=== PATIENT | female | born 1970 | race Two or more races ===

== ENCOUNTER 2021-05-19 20:54 | Inpatient (IN) | payer OTHER ==
[~2021-05-19] VITALS: Ht 160 cm; Wt 90.7 kg
[2021-05-19] MEDS ORDERED: CIPROFLOXACIN500 MG PO (21:39)
[2021-05-19] MEDS ORDERED: FAMOTIDINE20 MG PO (21:39)
[2021-05-19] MEDS ORDERED: PROTONIX40 M1 PO (21:40)
== END 2021-05-30 18:12 | disposition home or self-care (01) | DRG 394 ==
LOC: ER 20:54 → MEDI 05-20 11:45
PROVIDERS: ADMIT Internal Medicine; ATTEND Internal Medicine
PROC: BW21ZZZ Computerized Tomography (CT Scan) of Abdomen and Pelvis (ICD-10-PCS; principal; 2021-05-20)
PROC: 3E0F7GC Introduction of Other Therapeutic Substance into Respiratory Tract, Via Natural or Artificial Opening (ICD-10-PCS; 2021-05-20)
PROC: BW21YZZ Computerized Tomography (CT Scan) of Abdomen and Pelvis using Other Contrast (ICD-10-PCS; 2021-05-27)
DX: K61.1 Rectal abscess (principal); K62.5 Hemorrhage of anus and rectum; K52.89 Other specified noninfective gastroenteritis and colitis; K59.00 Constipation, unspecified; N93.8 Other specified abnormal uterine and vaginal bleeding; J45.998 Other asthma

== ENCOUNTER 2021-07-02 18:21 | Emergency (ER) | payer OTHER ==
[~2021-07-02] VITALS: Ht 160 cm; Wt 84.4 kg
[~2021-07-02 18:21] MED LIST: CIPROFLOXACIN500 MG PO; FAMOTIDINE20 MG PO; PROTONIX40 M1 PO
[2021-07-02] MEDS ORDERED: FLONASE16 GM (19:18)
[2021-07-02] MEDS ORDERED: DUPIXENT200 MG/1.1 (19:18)
[2021-07-04] MEDS ORDERED: METRONIDAZOLE500 MG PO (23:34)
[2021-07-04] MEDS ORDERED: PEPCID AC20 MG PO (23:34)
[2021-07-04] MEDS ORDERED: INTESTINEX680 M1 PO (23:34)
[2021-07-04] MEDS ORDERED: CIPRO500 MG PO (23:34)
== END 2021-07-03 10:24 | disposition home or self-care (01) ==
LOC: ER 18:21
DX: U07.1 COVID-19 (principal); K52.89 Other specified noninfective gastroenteritis and colitis

== ENCOUNTER 2021-07-04 13:53 | Emergency (ER) | payer OTHER ==
[~2021-07-04] VITALS: Ht 160 cm; Wt 83.5 kg
[~2021-07-04 13:53] MED LIST changes: +DUPIXENT200 MG/1.1; +FLONASE16 GM
[2021-07-04] MEDS ORDERED: INTESTINEX680 M1 PO (23:34)
[2021-07-04] MEDS ORDERED: CIPRO500 MG PO (23:34)
[2021-07-04] MEDS ORDERED: PEPCID AC20 MG PO (23:34)
[2021-07-04] MEDS ORDERED: METRONIDAZOLE500 MG PO (23:34)
== END 2021-07-05 00:33 ==
LOC: ER 13:53
DX: K52.9 Noninfective gastroenteritis and colitis, unspecified (principal); K62.5 Hemorrhage of anus and rectum; Z03.818 Encounter for observation for suspected exposure to other biological agents ruled out

== ENCOUNTER 2021-07-10 07:00 | Day surgery (SDC) | payer OTHER ==
[~2021-07-10 07:00] MED LIST changes: +CIPRO500 MG PO; +INTESTINEX680 M1 PO; +METRONIDAZOLE500 MG PO; +PEPCID AC20 MG PO
== END 2021-07-10 13:40 | disposition home or self-care (01) ==
LOC: AMB-ENDOS 07:00
PROVIDERS: ATTEND Surgery
DX: C19 Malignant neoplasm of rectosigmoid junction (principal); D12.2 Benign neoplasm of ascending colon; D12.3 Benign neoplasm of transverse colon; Z20.822 Contact with and (suspected) exposure to COVID-19; Z12.11 Encounter for screening for malignant neoplasm of colon

== ENCOUNTER → 2021-07-12 | Emergency (ER) | payer OTHER ==
[~2021-07-12] VITALS: Ht 160 cm; Wt 82.6 kg
[~2021-07-12] MED LIST changes: +ALBUTER IH; +AYGESTIN5 MG PO; +BUDESONIDE-FO10.2 G1; +CETIRIZINE HCL10 MG; +CHOLESTYRAMINE L4 GM; +COLCHICINE0.6 MG; +DUPIXENT; +DUPIXENT P300 MG/2 M; +INTESTINEX680 M1; +MONTELUKAST SOD10 MG; +PROAIR HFA8.5 GM; +SYMBIC IH; +ULTRAM50 MG PO; +VALACYCLOVIR500 MG; +VITAMIN C100 MG; +ZINC50 M3
== END | disposition home or self-care (01) ==
LOC: ER 19:34
DX: K29.70 Gastritis, unspecified, without bleeding (principal)

== ENCOUNTER 2021-07-30 08:15 | Inpatient (IN) | payer OTHER ==
[~2021-07-30] VITALS: Ht 160 cm; Wt 83.5 kg
[~2021-07-30 08:15] MED LIST changes: -ALBUTER IH; -AYGESTIN5 MG PO; -BUDESONIDE-FO10.2 G1; -CETIRIZINE HCL10 MG; -CHOLESTYRAMINE L4 GM; -COLCHICINE0.6 MG; -DUPIXENT; -DUPIXENT P300 MG/2 M; -INTESTINEX680 M1; -MONTELUKAST SOD10 MG; -PROAIR HFA8.5 GM; -SYMBIC IH; -ULTRAM50 MG PO; -VALACYCLOVIR500 MG; -VITAMIN C100 MG; -ZINC50 M3
[2021-07-30] MEDS ORDERED: PEPCID AC20 MG PO (09:44)
[2021-07-30] MEDS ORDERED: ALBUTER IH (09:45)
[2021-07-30] MEDS ORDERED: SYMBIC IH (09:45)
[2021-07-30] MEDS ORDERED: DUPIXENT (09:46)
[2021-07-30] MEDS ORDERED: AYGESTIN5 MG PO (09:47)
[2021-08-02] MEDS ORDERED: DUPIXENT P300 MG/2 M (10:04)
[2021-08-02] MEDS ORDERED: PROAIR HFA8.5 GM (10:04)
[2021-08-02] MEDS ORDERED: BUDESONIDE-FO10.2 G1 (10:04)
[2021-08-02] MEDS ORDERED: VITAMIN C100 MG (10:05)
[2021-08-02] MEDS ORDERED: CETIRIZINE HCL10 MG (10:05)
[2021-08-02] MEDS ORDERED: ZINC50 M3 (10:05)
[2021-08-02] MEDS ORDERED: CHOLESTYRAMINE L4 GM (10:05)
[2021-08-02] MEDS ORDERED: COLCHICINE0.6 MG (10:05)
[2021-08-02] MEDS ORDERED: VALACYCLOVIR500 MG (10:05)
[2021-08-02] MEDS ORDERED: INTESTINEX680 M1 (10:05)
[2021-08-02] MEDS ORDERED: FLONASE16 GM (10:06)
[2021-08-02] MEDS ORDERED: MONTELUKAST SOD10 MG (10:06)
[2021-08-08] MEDS ORDERED: ULTRAM50 MG PO (11:04)
== END 2021-08-08 12:02 | disposition home or self-care (01) | DRG 331 ==
LOC: EDSTATUS 08:15 → ADM 08:15 → O/R 08-02 06:10 → SURH 08-02 08:15 → SURG 08-02 19:24
PROVIDERS: ADMIT Surgery; ATTEND Surgery
PROC: 0DTP4ZZ Resection of Rectum, Percutaneous Endoscopic Approach (ICD-10-PCS; 2021-08-02)
PROC: 07BC3ZX Excision of Pelvis Lymphatic, Percutaneous Approach, Diagnostic (ICD-10-PCS; 2021-08-02)
PROC: 3E0F7SF Introduction of Other Gas into Respiratory Tract, Via Natural or Artificial Opening (ICD-10-PCS; 2021-08-02)
PROC: 0DTN4ZZ Resection of Sigmoid Colon, Percutaneous Endoscopic Approach (ICD-10-PCS; principal; 2021-08-02 11:15)
PROC: 3E0F7GC Introduction of Other Therapeutic Substance into Respiratory Tract, Via Natural or Artificial Opening (ICD-10-PCS; 2021-08-04)
PROC: 30233N1 Transfusion of Nonautologous Red Blood Cells into Peripheral Vein, Percutaneous Approach (ICD-10-PCS; 2021-08-05)
DX: C19 Malignant neoplasm of rectosigmoid junction (principal); D64.9 Anemia, unspecified; T40.2X5A Adverse effect of other opioids, initial encounter; Y92.230 Patient room in hospital as the place of occurrence of the external cause; J45.998 Other asthma

== ENCOUNTER 2021-08-30 06:21 | Day surgery (SDC) | payer OTHER ==
[~2021-08-30 06:21] MED LIST changes: +ALBUTER IH; +AYGESTIN5 MG PO; +BUDESONIDE-FO10.2 G1; +CETIRIZINE HCL10 MG; +CHOLESTYRAMINE L4 GM; +COLCHICINE0.6 MG; +DUPIXENT; +DUPIXENT P300 MG/2 M; +INTESTINEX680 M1; +MONTELUKAST SOD10 MG; +PROAIR HFA8.5 GM; +SYMBIC IH; +ULTRAM50 MG PO; +VALACYCLOVIR500 MG; +VITAMIN C100 MG; +ZINC50 M3
[2021-08-30] MEDS ORDERED: ULTRAM50 MG PO (10:40)
== END 2021-08-30 11:00 | disposition home or self-care (01) ==
LOC: CIR.AMB 06:21
PROVIDERS: ATTEND Surgery
DX: C19 Malignant neoplasm of rectosigmoid junction (principal); Z20.822 Contact with and (suspected) exposure to COVID-19
CPT/HCPCS: 36561; C1751

== ENCOUNTER 2021-09-11 22:32 | Emergency (ER) | payer OTHER ==
[~2021-09-11] VITALS: Ht 157.5 cm; Wt 76.2 kg
== END 2021-09-12 13:49 | disposition home or self-care (01) ==
LOC: ER 22:32
DX: R10.31 Right lower quadrant pain (principal); N83.291 Other ovarian cyst, right side

== ENCOUNTER 2022-03-08 11:46 | Emergency (ER) | payer OTHER ==
[~2022-03-08] VITALS: Ht 160 cm; Wt 89.4 kg
[2022-03-08] MEDS ORDERED: XARELTO15 MG (12:19)
== END 2022-03-08 14:10 | disposition home or self-care (01) ==
LOC: ER 11:46
DX: T82.868A Thrombosis due to vascular prosthetic devices, implants and grafts, initial encounter (principal); C50.919 Malignant neoplasm of unspecified site of unspecified female breast

== ENCOUNTER 2022-04-18 09:14 | Emergency (ER) | payer OTHER ==
[~2022-04-18] VITALS: Ht 152.4 cm; Wt 90.7 kg
[~2022-04-18 09:14] MED LIST changes: +XARELTO15 MG
[2022-04-18] MEDS ORDERED: IRON325 MG PO (20:56)
== END 2022-04-18 20:59 | disposition home or self-care (01) ==
LOC: ER 09:14
DX: N93.9 Abnormal uterine and vaginal bleeding, unspecified (principal); D25.9 Leiomyoma of uterus, unspecified; Z88.6 Allergy status to analgesic agent; Z91.041 Radiographic dye allergy status

== ENCOUNTER 2022-05-01 07:48 | Day surgery (SDC) | payer OTHER ==
[~2022-05-01] VITALS: Ht 165.1 cm; Wt 86.2 kg
[~2022-05-01 07:48] MED LIST changes: +COZAAR50 MG PO; +IRON325 MG PO
[2022-05-01] MEDS ORDERED: TRAMADOL HCL50 MG PO (14:02)
== END 2022-05-01 14:40 | disposition home or self-care (01) ==
LOC: CIR.AMB 07:48
PROVIDERS: ATTEND Surgery
DX: T82.598A Other mechanical complication of other cardiac and vascular devices and implants, initial encounter (principal); C19 Malignant neoplasm of rectosigmoid junction; K59.09 Other constipation; R59.0 Localized enlarged lymph nodes; I82.629 Acute embolism and thrombosis of deep veins of unspecified upper extremity; Z88.6 Allergy status to analgesic agent; Z20.822 Contact with and (suspected) exposure to COVID-19; Z91.041 Radiographic dye allergy status; J45.909 Unspecified asthma, uncomplicated; Z86.16 Personal history of COVID-19; I10 Essential (primary) hypertension; Z92.21 Personal history of antineoplastic chemotherapy; E66.9 Obesity, unspecified

== ENCOUNTER 2022-07-25 08:36 | Outpatient (CLI) | payer OTHER ==
[~2022-07-25 08:36] MED LIST changes: +TRAMADOL HCL50 MG PO
== END 2022-07-25 08:39 | disposition home or self-care (01) ==
LOC: NUCLEAR 08:36
PROVIDERS: ATTEND Internal Medicine
DX: I82.C12 Acute embolism and thrombosis of left internal jugular vein (principal); Z91.041 Radiographic dye allergy status; Z88.6 Allergy status to analgesic agent

== ENCOUNTER 2022-07-31 07:18 | Outpatient (CLI) | payer OTHER | END 2022-07-31 07:46 | disposition home or self-care (01) | LOC: TOM 07:18 | PROVIDERS: ATTEND Internal Medicine | DX: I26.99 Other pulmonary embolism without acute cor pulmonale (principal); C19 Malignant neoplasm of rectosigmoid junction | CPT/HCPCS: 71275 ==

== ENCOUNTER 2022-08-23 07:18 | Outpatient (CLI) | payer OTHER | END 2022-08-23 07:19 | disposition home or self-care (01) | LOC: LAB 07:18 | PROVIDERS: ATTEND Obstetrics & Gynecology Gynecologic Oncology | DX: D64.9 Anemia, unspecified (principal); N39.0 Urinary tract infection, site not specified; R79.1 Abnormal coagulation profile; Z01.818 Encounter for other preprocedural examination; Z20.822 Contact with and (suspected) exposure to COVID-19; I10 Essential (primary) hypertension; N83.291 Other ovarian cyst, right side ==

== ENCOUNTER 2022-08-25 12:15 | Inpatient (IN) | payer OTHER ==
[~2022-08-25] VITALS: Ht 160 cm; Wt 90.7 kg
[2022-08-29] MEDS ORDERED: GABAPENTIN300 M2 (09:34)
[2022-08-29] MEDS ORDERED: AZELASTINE137 MCG/0. (09:34)
[2022-08-29] MEDS ORDERED: BUDESONIDE-FO10.2 G1 (09:34)
[2022-08-29] MEDS ORDERED: FERROUS SULFAT325 MG (09:34)
[2022-08-29] MEDS ORDERED: LOSARTAN-HCTZ1 EACH (09:34)
[2022-08-29] MEDS ORDERED: MONTELUKAST SOD10 MG (09:34)
== END 2022-08-29 17:44 | disposition home or self-care (01) | DRG 743 ==
LOC: O/R 08-28 06:35 → SURG 08-28 10:15 → OB/GYN 08-28 15:30
PROVIDERS: ADMIT Obstetrics & Gynecology Gynecologic Oncology; ATTEND Obstetrics & Gynecology Gynecologic Oncology
PROC: 0DBW4ZZ Excision of Peritoneum, Percutaneous Endoscopic Approach (ICD-10-PCS; 2022-08-28)
PROC: 0UT74ZZ Resection of Bilateral Fallopian Tubes, Percutaneous Endoscopic Approach (ICD-10-PCS; 2022-08-28)
PROC: 07BC4ZZ Excision of Pelvis Lymphatic, Percutaneous Endoscopic Approach (ICD-10-PCS; 2022-08-28)
PROC: 0UT24ZZ Resection of Bilateral Ovaries, Percutaneous Endoscopic Approach (ICD-10-PCS; 2022-08-28)
PROC: 0UT94ZZ Resection of Uterus, Percutaneous Endoscopic Approach (ICD-10-PCS; principal; 2022-08-28 10:15)
DX: D25.1 Intramural leiomyoma of uterus (principal); N83.01 Follicular cyst of right ovary; N80.03 Adenomyosis of the uterus; N83.12 Corpus luteum cyst of left ovary; Z20.822 Contact with and (suspected) exposure to COVID-19

== ENCOUNTER 2022-09-10 14:09 | Outpatient (CLI) | payer OTHER ==
[~2022-09-10 14:09] MED LIST changes: +AZELASTINE137 MCG/0.; +FERROUS SULFAT325 MG; +GABAPENTIN300 M2; +LOSARTAN-HCTZ1 EACH
== END 2022-09-10 14:18 | disposition home or self-care (01) ==
LOC: LAB 14:09
PROVIDERS: ATTEND Obstetrics & Gynecology Gynecologic Oncology
DX: N39.0 Urinary tract infection, site not specified (principal)

== ENCOUNTER 2023-01-24 08:13 | Outpatient (CLI) | payer OTHER | END 2023-01-24 08:15 | disposition home or self-care (01) | LOC: LAB 08:13 | PROVIDERS: ATTEND Surgery | DX: D64.9 Anemia, unspecified (principal); E11.8 Type 2 diabetes mellitus with unspecified complications; I48.91 Unspecified atrial fibrillation; N39.0 Urinary tract infection, site not specified; E03.9 Hypothyroidism, unspecified; M35.1 Other overlap syndromes; E11.9 Type 2 diabetes mellitus without complications; D55.9 Anemia due to enzyme disorder, unspecified; Z12.11 Encounter for screening for malignant neoplasm of colon; E78.5 Hyperlipidemia, unspecified; C19 Malignant neoplasm of rectosigmoid junction; R59.0 Localized enlarged lymph nodes; K62.5 Hemorrhage of anus and rectum; R10.32 Left lower quadrant pain; K59.09 Other constipation; T82.59 Other mechanical complication of other cardiac and vascular devices and implants; I82.629 Acute embolism and thrombosis of deep veins of unspecified upper extremity ==

== ENCOUNTER → 2023-01-26 08:17 | Outpatient (CLI) | payer OTHER | END | disposition home or self-care (01) | LOC: LAB 08:17 | PROVIDERS: ATTEND Surgery | DX: Z20.822 Contact with and (suspected) exposure to COVID-19 (principal); Z03.818 Encounter for observation for suspected exposure to other biological agents ruled out ==

== ENCOUNTER → 2023-01-29 | Outpatient (CLI) | payer OTHER | END | disposition home or self-care (01) | LOC: TOM 08:27 | PROVIDERS: ATTEND Internal Medicine | DX: J33.0 Polyp of nasal cavity (principal); R59.0 Localized enlarged lymph nodes; C18.9 Malignant neoplasm of colon, unspecified ==

== ENCOUNTER → 2023-02-12 07:57 | Outpatient (CLI) | payer OTHER | END | disposition home or self-care (01) | LOC: LAB 07:57 | PROVIDERS: ATTEND Internal Medicine | DX: E03.9 Hypothyroidism, unspecified (principal) ==

== ENCOUNTER 2023-02-12 08:37 | Outpatient (CLI) | payer OTHER | END 2023-02-12 09:04 | disposition home or self-care (01) | LOC: SONOGRAMA 08:37 | PROVIDERS: ATTEND Internal Medicine | DX: E04.2 Nontoxic multinodular goiter (principal) ==

== ENCOUNTER 2023-05-23 09:00 | Outpatient (CLI) | payer OTHER | END 2023-05-23 09:02 | disposition home or self-care (01) | LOC: LAB 09:00 | PROVIDERS: ATTEND Internal Medicine | DX: D64.9 Anemia, unspecified (principal); E11.8 Type 2 diabetes mellitus with unspecified complications; I48.91 Unspecified atrial fibrillation; N39.0 Urinary tract infection, site not specified; E03.9 Hypothyroidism, unspecified; M35.1 Other overlap syndromes; E11.9 Type 2 diabetes mellitus without complications; E55.9 Vitamin D deficiency, unspecified; Z12.11 Encounter for screening for malignant neoplasm of colon; E78.2 Mixed hyperlipidemia ==

== ENCOUNTER 2023-06-18 07:48 | Outpatient (CLI) | payer OTHER | END 2023-06-18 07:49 | disposition home or self-care (01) | LOC: NUCLEAR 07:48 | PROVIDERS: ATTEND Internal Medicine | DX: I82.C21 Chronic embolism and thrombosis of right internal jugular vein (principal); C18.4 Malignant neoplasm of transverse colon ==

== ENCOUNTER 2023-06-19 13:36 | Outpatient (CLI) | payer OTHER | END 2023-06-19 13:40 | disposition home or self-care (01) | LOC: NUCLEAR 13:36 | PROVIDERS: ATTEND Internal Medicine | DX: I82.C21 Chronic embolism and thrombosis of right internal jugular vein (principal); C18.4 Malignant neoplasm of transverse colon ==

== ENCOUNTER 2023-06-27 09:51 | Outpatient (CLI) | payer OTHER | END 2023-06-27 09:55 | disposition home or self-care (01) | LOC: LAB 09:51 | PROVIDERS: ATTEND Internal Medicine | DX: C19 Malignant neoplasm of rectosigmoid junction (principal); Z51.11 Encounter for antineoplastic chemotherapy; R11.0 Nausea; Z20.828 Contact with and (suspected) exposure to other viral communicable diseases; I82.C12 Acute embolism and thrombosis of left internal jugular vein ==

== ENCOUNTER 2023-08-20 07:14 | Outpatient (CLI) | payer OTHER | END 2023-08-20 12:47 | disposition home or self-care (01) | LOC: SONOGRAMA 07:14 | PROVIDERS: ATTEND Internal Medicine | DX: R10.9 Unspecified abdominal pain (principal) ==

== ENCOUNTER 2023-09-16 07:25 | Outpatient (CLI) | payer OTHER | END 2023-09-16 07:27 | disposition home or self-care (01) | LOC: NUCLEAR 07:25 | PROVIDERS: ATTEND Internal Medicine | DX: K81.1 Chronic cholecystitis (principal) ==

== ENCOUNTER 2023-12-05 10:43 | Outpatient (CLI) | payer OTHER ==
[2023-12-05 13:01] LABS: HEMATOCRIT 37.9 % (36.0-45.00); HEMOGLOBIN 12.7 g/dL (12.0-15.00); MEAN CELL VOLUME 85.9 fL (80.00-100.00); MEAN CORPUSCULAR HEMOGLOBIN 28.8 pg (27.00-32.0); MEAN CORPUSCULAR HGB CONC 33.5 g/dl (32.0-36.0); PLATELET COUNT 340 K/uL (150-450); RED BLOOD COUNT 4.42 M/uL (4.00-6.00); RED CELL DISTRIBUTION WIDTH 12.7 % (11.5-14.5)
[2023-12-05 13:17] LABS: ALBUMIN 4.2 gm/dL (3.4-5.0); BILIRUBIN TOTAL 0.27 mg/dL (0.3-1.2); CALCIUM 9.6 mg/dL (8.5-10.1); CREATININE SERUM 0.64 mg/dL (0.55-1.02); GFR 97.83; GLOBULINA 3.6 G/DL (2.4-3.5); POTASSIUM 3.81 mEq/L (3.5-5.1); TOTAL PROTEIN 7.8 gm/dL (6.4-8.2)
== END 2023-12-05 23:00 | disposition home or self-care (01) ==
LOC: LAB 10:43
PROVIDERS: ATTEND Internal Medicine
DX: C19 Malignant neoplasm of rectosigmoid junction (principal); C78.6 Secondary malignant neoplasm of retroperitoneum and peritoneum

== ENCOUNTER 2023-12-09 06:55 | Outpatient (CLI) | payer OTHER | END 2023-12-09 08:09 | disposition home or self-care (01) | LOC: TOM 06:55 | PROVIDERS: ATTEND Internal Medicine | DX: C19 Malignant neoplasm of rectosigmoid junction (principal); N60.11 Diffuse cystic mastopathy of right breast; N60.12 Diffuse cystic mastopathy of left breast ==

== ENCOUNTER 2024-11-22 06:24 | Outpatient (CLI) | payer OTHER ==
[2024-11-22 07:31] LABS: URINE APPEARANCE Clear; URINE BILIRRUBIN Negative (NEGATIVE); URINE COLOR Yellow; URINE GLUCOSE Negative (NEGATIVE); URINE KETONE Negative (NEGATIVE); URINE LEUKOCYTE Negative; URINE NITRATE Negative; URINE PROTEIN Negative (NEGATIVE); URINE UROBILINOGEN 0.2 E.U./dl
[2024-11-22 07:32] LABS: HEMATOCRIT 37.8 % (36.0-45.00); HEMOGLOBIN 12.9 g/dL (12.0-15.00); MEAN CELL VOLUME 86.6 fL (80.00-100.00); MEAN CORPUSCULAR HEMOGLOBIN 29.5 pg (27.00-32.0); MEAN CORPUSCULAR HGB CONC 34.1 g/dl (32.0-36.0); PLATELET COUNT 295 K/uL (150-450); RED BLOOD COUNT 4.36 M/uL (4.00-6.00); RED CELL DISTRIBUTION WIDTH 13.8 % (11.5-14.5)
[2024-11-22 07:34] LABS: URINE BACTERIA 309.6 uL (0.0-1933); URINE EPITHELIAL CELLS 9.4 uL (0.0-38.8); URINE RBC 62.3 uL (0.0-20.8); URINE WBC 3.4 uL (0.0-23.2)
[2024-11-22 07:39] LABS: URINE BLOOD Trace
[2024-11-22 09:32] LABS: ALBUMIN 3.9 gm/dL (3.4-5.0); BILIRUBIN TOTAL 0.3 mg/dL (0.3-1.2); CALCIUM 9.3 mg/dL (8.5-10.1); CHOL HDL RATIO 3.3 (0-5.0); CREATININE SERUM 0.63 mg/dL (0.55-1.02); GFR 99.23; GLOBULINA 3.6 G/DL (2.4-3.5); POTASSIUM 3.94 mEq/L (3.5-5.1); T4 TOTAL 11.37 UG/DL (4.8-13.9); TOTAL PROTEIN 7.5 gm/dL (6.4-8.2)
[2024-11-22 09:36] LABS: TSH 0.02 uIU/mL (0.358-3.74)
== END 2024-11-22 06:25 | disposition home or self-care (01) ==
LOC: LAB 06:24
PROVIDERS: ATTEND Internal Medicine
DX: C19 Malignant neoplasm of rectosigmoid junction (principal); D64.9 Anemia, unspecified; R10.9 Unspecified abdominal pain; E11.9 Type 2 diabetes mellitus without complications

== ENCOUNTER 2024-12-14 06:23 | Outpatient (CLI) | payer OTHER ==
[2024-12-15 06:04] LABS: CA 125 5.8 U/mL (0.0-38.1); ESTRADIOL SERUM < 5.0 pg/mL (.); FOLLICLE STIMULATING HORMONE 89.1 mIU/mL (.); TESTOSTERONE,TOTAL < 3.00 ng/dL (4-50)
== END 2024-12-14 06:27 | disposition home or self-care (01) ==
LOC: LAB 06:23
DX: E03.9 Hypothyroidism, unspecified (principal); E16.2 Hypoglycemia, unspecified; E78.5 Hyperlipidemia, unspecified; E55.9 Vitamin D deficiency, unspecified; Z12.11 Encounter for screening for malignant neoplasm of colon; N91.1 Secondary amenorrhea; E22.1 Hyperprolactinemia; D64.9 Anemia, unspecified

== ENCOUNTER 2024-12-14 07:04 | Outpatient (CLI) | payer OTHER | END 2024-12-14 10:31 | disposition home or self-care (01) | LOC: MAMO-SONO 07:04 | DX: N60.01 Solitary cyst of right breast (principal); N60.02 Solitary cyst of left breast ==

== ENCOUNTER 2024-12-20 13:12 | Emergency (ER) | payer OTHER ==
[~2024-12-20] VITALS: Ht 160 cm; Wt 82.6 kg
[2024-12-20] MEDS ORDERED: FAMOtidine 10 MG/ML (4ML VIAL) IV ONE (16:15)
[2024-12-20] MEDS ORDERED: MORPHINE SULFATE 4 MG/ML VIAL IV ONE (16:15)
[2024-12-20] MEDS ORDERED: DIPHENHYDRAMINE HCL 50 MG/ML VIAL 1ML IV ONE (16:30)
[2024-12-20] MEDS ORDERED: METHYLPREDNISOLONE SOD SUCC 40 MG VIAL IV ONE (16:30)
[2024-12-20] MEDS ORDERED: FAMOTIDINE/PF 20 MG/2 ML VIAL ONE (16:33)
[2024-12-20] MEDS ORDERED: METHYLPREDNISOLONE SOD SUCC 40 MG VIAL ONE (16:33)
[2024-12-20] MEDS ORDERED: DIPHENHYDRAMINE HCL 50 MG/ML VIAL 1ML ONE (16:33)
[2024-12-20 16:55] LABS: HEMATOCRIT 40.3 % (36.0-45.00); HEMOGLOBIN 13.3 g/dL (12.0-15.00); MEAN CELL VOLUME 87.6 fL (80.00-100.00); MEAN CORPUSCULAR HGB CONC 33.1 g/dl (32.0-36.0); PLATELET COUNT 284 K/uL (150-450); RED CELL DISTRIBUTION WIDTH 13.3 % (11.5-14.5)
[2024-12-20 17:27] LABS: URINE APPEARANCE Clear; URINE BILIRRUBIN Negative (NEGATIVE); URINE COLOR Yellow; URINE GLUCOSE Negative (NEGATIVE); URINE KETONE Negative (NEGATIVE); URINE LEUKOCYTE Negative; URINE NITRATE Negative; URINE PROTEIN Negative (NEGATIVE); URINE UROBILINOGEN 0.2 E.U./dl
[2024-12-20 17:31] LABS: URINE BACTERIA 116.1 uL (0.0-1933); URINE EPITHELIAL CELLS 2.8 uL (0.0-38.8); URINE RBC 11.9 uL (0.0-20.8); URINE WBC 2.2 uL (0.0-23.2)
[2024-12-20 17:47] LABS: URINE BLOOD TRACE
[2024-12-20] MEDS ORDERED: MEPERIDINE HCL/PF 50 MG/ML VIAL IM STA (18:27)
[2024-12-20 18:49] LABS: BILIRUBIN TOTAL 0.22 mg/dL (0.3-1.2); CALCIUM 9.3 mg/dL (8.5-10.1); CREATININE SERUM 0.66 mg/dL (0.55-1.02); GFR 94.04; GLOBULINA 3.9 G/DL (2.4-3.5); INR 0.99; PARTIAL THROMBOPLASTIN TIME 27.1 SECONDS (22.0-34.0); POTASSIUM 4.11 mEq/L (3.5-5.1); PROTHROMBIN TIME 10.8 SECONDS (9.0-11.5); TOTAL PROTEIN 7.9 gm/dL (6.4-8.2)
[2024-12-20] MEDS ORDERED: PEPCID AC20 MG PO (21:46)
[2024-12-20] MEDS ORDERED: DICY20TA PO (21:46)
== END 2024-12-20 22:16 | disposition home or self-care (01) ==
LOC: ER 13:15
PROVIDERS: General Practice
DX: R10.32 Left lower quadrant pain (principal); K29.70 Gastritis, unspecified, without bleeding; K63.89 Other specified diseases of intestine; E03.9 Hypothyroidism, unspecified; I10 Essential (primary) hypertension; Z88.6 Allergy status to analgesic agent; Z88.8 Allergy status to other drugs, medicaments and biological substances; Z87.09 Personal history of other diseases of the respiratory system; Z85.038 Personal history of other malignant neoplasm of large intestine

== ENCOUNTER 2025-01-10 10:33 | Outpatient (CLI) | payer OTHER ==
[~2025-01-10 10:33] MED LIST changes: +DICY20TA PO
== END 2025-01-10 10:34 | disposition home or self-care (01) ==
LOC: NUCLEAR 10:33
DX: I10 Essential (primary) hypertension (principal); M81.0 Age-related osteoporosis without current pathological fracture

== ENCOUNTER → 2025-03-10 10:10 | Outpatient (CLI) | payer OTHER ==
[2025-03-10 11:54] LABS: URINE APPEARANCE Clear; URINE BILIRRUBIN Negative (NEGATIVE); URINE BLOOD Negative; URINE COLOR Yellow; URINE GLUCOSE Negative (NEGATIVE); URINE KETONE Negative (NEGATIVE); URINE LEUKOCYTE Negative; URINE NITRATE Negative; URINE PROTEIN Negative (NEGATIVE); URINE UROBILINOGEN 0.2 E.U./dl
[2025-03-10 11:57] LABS: HEMATOCRIT 39.1 % (36.0-45.00); HEMOGLOBIN 13.4 g/dL (12.0-15.00); MEAN CELL VOLUME 86.5 fL (80.00-100.00); MEAN CORPUSCULAR HEMOGLOBIN 29.7 pg (27.00-32.0); MEAN CORPUSCULAR HGB CONC 34.3 g/dl (32.0-36.0); PLATELET COUNT 271 K/uL (150-450); RED BLOOD COUNT 4.52 M/uL (4.00-6.00); RED CELL DISTRIBUTION WIDTH 13.2 % (11.5-14.5)
[2025-03-10 11:58] LABS: URINE BACTERIA 51.3 uL (0.0-1933); URINE RBC 4.1 uL (0.0-20.8)
[2025-03-10 12:07] LABS: URINE EPITHELIAL CELLS 0.7 uL (0.0-38.8); URINE WBC 0.7 uL (0.0-23.2)
[2025-03-10 13:32] LABS: ALBUMIN 4.3 gm/dL (3.4-5.0); BILIRUBIN TOTAL 0.44 mg/dL (0.3-1.2); CALCIUM 9.5 mg/dL (8.5-10.1); CHOL HDL RATIO 3.9 (0-5.0); CREATININE SERUM 0.64 mg/dL (0.55-1.02); FREE TRIODOTIRONINE 2.78 pg/ml (2.18-3.98); GFR 97.07; GLOBULINA 3.5 G/DL (2.4-3.5); POTASSIUM 4.36 mEq/L (3.5-5.1); T4 FREE 1.34 NG/ML (0.76-1.46); TOTAL PROTEIN 7.8 gm/dL (6.4-8.2)
[2025-03-10 13:33] LABS: TSH 0.022 uIU/mL (0.358-3.74)
== END | disposition home or self-care (01) ==
LOC: LAB 10:10
DX: E03.9 Hypothyroidism, unspecified (principal); E66.9 Obesity, unspecified; E11.8 Type 2 diabetes mellitus with unspecified complications; I10 Essential (primary) hypertension; N95.9 Unspecified menopausal and perimenopausal disorder; R97.20 Elevated prostate specific antigen [PSA]

== ENCOUNTER 2025-05-26 13:04 | Outpatient (CLI) | payer OTHER | END 2025-05-26 13:11 | disposition home or self-care (01) | LOC: RAD 13:04 | PROVIDERS: ATTEND Internal Medicine | DX: J01.90 Acute sinusitis, unspecified (principal) ==

== ENCOUNTER 2025-05-30 15:11 | Emergency (ER) | payer OTHER ==
[~2025-05-30] VITALS: Ht 160 cm; Wt 87.1 kg
[2025-05-30] MEDS ORDERED: XANAX0.25 MG PO (16:09)
[2025-05-30 20:47] LABS: BASO % 1.0 % (0.1-1.2); EOS # 0.65 (0.04-0.54); EOS % 8.1 % (0.7-7.0); LYMPH # 3.27 (1.18-3.74); LYMPH % 40.8 % (19.3-53.1); MEAN PLATELET VOLUME 9.60 fl (9.4-12.4); MONO # 0.42 (0.24-0.82); MONO % 5.2 % (4.7-12.5); NEUT # 3.56 (1.56-6.13); NEUT % 44.5 % (34.0-71.1); RED CELL DISTRIBUTION WIDTH 12.3 % (11.6-14.4)
== END 2025-05-30 21:45 | disposition home or self-care (01) ==
LOC: ER 15:11
DX: R10.32 Left lower quadrant pain (principal); Z88.6 Allergy status to analgesic agent; Z91.041 Radiographic dye allergy status; K59.01 Slow transit constipation

== ENCOUNTER 2025-07-08 09:28 | Outpatient (CLI) | payer OTHER ==
[~2025-07-08 09:28] MED LIST changes: +XANAX0.25 MG PO
[2025-07-08 10:43] LABS: ALT/SGPT 20.0 U/L (12-78); AST/SGOT 14.0 U/L (15-37); BILIRUBIN TOTAL 0.38 mg/dL (0.3-1.2); BUN CREA RATIO 23.0 (7.0-25.0); CREATININE SERUM 0.69 mg/dL (0.55-1.02); GFR 89.0; GLOBULINA 4.0 G/DL (2.4-3.5); GLUCOSE FASTING 89.0 mg/dL (65-100); OSMOLALITY SERUM 280.0 MOSM/KG (275-295)
[2025-07-08 11:00] LABS: BASO % 1.2 % (0.1-1.2); EOS # 1.04 (0.04-0.54); LYMPH # 2.05 (1.18-3.74); LYMPH % 30.1 % (19.3-53.1); MEAN PLATELET VOLUME 9.90 fl (9.4-12.4); MONO # 0.33 (0.24-0.82); MONO % 4.8 % (4.7-12.5); NEUT # 3.30 (1.56-6.13); NEUT % 48.4 % (34.0-71.1); RED CELL DISTRIBUTION WIDTH 11.9 % (11.6-14.4)
[2025-07-08 11:03] LABS: EOS % 15.2 % (0.7-7.0)
== END 2025-07-08 09:32 | disposition home or self-care (01) ==
LOC: LAB 09:28
PROVIDERS: ATTEND Internal Medicine
DX: C19 Malignant neoplasm of rectosigmoid junction (principal)

== ENCOUNTER 2025-09-30 09:35 | Outpatient (CLI) | payer OTHER ==
[2025-09-30 11:43] LABS: BASO % 1.1 % (0.1-1.2); EOS # 0.75 (0.04-0.54); EOS % 13.3 % (0.7-7.0); LYMPH # 1.92 (1.18-3.74); LYMPH % 33.9 % (19.3-53.1); MEAN PLATELET VOLUME 10.00 fl (9.4-12.4); MONO # 0.30 (0.24-0.82); MONO % 5.3 % (4.7-12.5); NEUT # 2.62 (1.56-6.13); NEUT % 46.2 % (34.0-71.1); RED CELL DISTRIBUTION WIDTH 12.1 % (11.6-14.4)
[2025-09-30 11:59] LABS: ERYTHROCYTE SEDIMENTATION RATE 16 mm/hr (0-30)
[2025-09-30 12:07] LABS: INR 0.97; URINE APPEARANCE Clear; URINE BILIRRUBIN Negative (NEGATIVE); URINE BLOOD Negative; URINE COLOR Yellow; URINE GLUCOSE Negative (NEGATIVE); URINE KETONE Negative (NEGATIVE); URINE LEUKOCYTE Negative; URINE NITRATE Negative; URINE PROTEIN Negative (NEGATIVE); URINE UROBILINOGEN 0.2 E.U./dl
[2025-09-30 12:11] LABS: URINE BACTERIA 20.4 uL (0.0-1933); URINE EPITHELIAL CELLS 2.1 uL (0.0-38.8); URINE RBC 4.8 uL (0.0-20.8)
[2025-09-30 12:26] LABS: URINE CAST 0.00 uL (0.0-1.40); URINE WBC 0.1 uL (0.0-23.2)
[2025-09-30 14:59] LABS: BUN CREA RATIO 29.0 (7.0-25.0); CHOL HDL RATIO 3.5 (0-5.0); CREATININE SERUM 0.59 mg/dL (0.55-1.02); GFR 106.62; GLUCOSE FASTING 90.0 mg/dL (65-100); HDL 61.0 mg/dl (40-60); LDL 121.0 mg/dl (0-130); OSMOLALITY SERUM 279.0 MOSM/KG (275-295); VLDL 29.0 (0-39)
[2025-09-30 15:00] LABS: ALT/SGPT 22.0 U/L (12-78); AST/SGOT 13.0 U/L (15-37); BILIRUBIN TOTAL 0.38 mg/dL (0.3-1.2); GLOBULINA 3.8 G/DL (2.4-3.5)
[2025-09-30 15:01] LABS: T4 FREE 1.31 NG/ML (0.76-1.46)
[2025-10-01 02:07] LABS: TSH 0.019 uIU/mL (0.358-3.74)
[2025-10-03 10:10] LABS: ESTRADIOL SERUM 45.8 pg/mL (.)
== END 2025-09-30 09:41 | disposition home or self-care (01) ==
LOC: LAB 09:35
PROVIDERS: ATTEND Internal Medicine
DX: D64.9 Anemia, unspecified (principal); E11.8 Type 2 diabetes mellitus with unspecified complications; I48.91 Unspecified atrial fibrillation; N39.0 Urinary tract infection, site not specified; E03.9 Hypothyroidism, unspecified; M35.1 Other overlap syndromes; E11.9 Type 2 diabetes mellitus without complications; E55.9 Vitamin D deficiency, unspecified; Z12.11 Encounter for screening for malignant neoplasm of colon; E78.2 Mixed hyperlipidemia; J45.998 Other asthma; E23.0 Hypopituitarism; M85.80 Other specified disorders of bone density and structure, unspecified site; E34.9 Endocrine disorder, unspecified; I11.9 Hypertensive heart disease without heart failure; E66.01 Morbid (severe) obesity due to excess calories; C18.9 Malignant neoplasm of colon, unspecified